=== PATIENT | female | born 1955 | race African-American/Black ===

== ENCOUNTER 2024-09-02 10:21 | Inpatient (IN) ==
[2024-09-02] MEDS: 0.9 % SODIUM CHLORIDE 1000 ML 1,000 ML IV STA (10:41)
--- NOTE | 2024-09-02 10:42 | Emergency Department Note ---
HPI - General Adult General Chief complaint: Recheck/Abnormal Lab/Rx Stated complaint: sent for fluids Time Seen by Provider: 09/02/24 10:37 Source: patient Mode of arrival: walk-in Limitations: no limitations History of Present Illness HPI narrative: This is a 68 year old female patient that presents to the ER with c/o being sent here by her PCP for abnormal labs and needs IVF. patient denies any chest pain, SOB, back pain, abdominal pain, numbness, tingling, weakness or N/V/D. Exacerbating factors: Reports none Associated symptoms: Reports denies other symptoms Treatments prior to arrival: Reports none Related Data Allergies Allergy/AdvReac Type Severity Reaction Status Date / Time No Known Drug Allergies Allergy Verified 09/02/24 10:38 Review of Systems Status of ROS 10 or more systems reviewed and unremark able except as noted in history and below Constitutional Denies: fever, chills, change in weight, fatigue, malaise, night sweats or change in sleep pattern Eyes Denies: change in vision, blurry vision, blind spots, light sensitivity or eye discomfort Ears, nose, mouth, and throat Denies: throat pain, neck pain, throat swelling, difficulty swallowing, hoarseness, mouth pain or swelling of lips/tongue Cardiovascular Denies: chest pain, palpitations, edema, swelling of feet/ankles, lightheadedness or shortness of breath with exertion Respiratory Denies: shortness of breath, cough, wheezing, stridor, pain on inspiration or change in phlegm color Gastrointestinal Denies: abdominal pain, nausea, vomiting, coffee grounds in vomit, heartburn, diarrhea or constipation Genitourinary Denies: painful urination, urinary frequency, urinary urgency, urinary incontinence, blood in urine or difficulty voiding Musculoskeletal Denies: back pain, neck pain, extremity pain, extremity swelling, joint pain or limited range of motion Integumentary/Breast Denies: rash, itching, redness, skin pain, skin tenderness, skin swelling or sores Neurological Denies: headache, numbness in extremities, weakness in extremities, lack of coordination or dizziness Psychiatric Denies: anxiety, mood swings, panic attacks, change in sleep pattern, hopelessness or loss of interest Endocrine Denies: excessive urination, excessive thirst, fatigue or cold intolerance Hematologic/Lymphatic Denies: easy bruising, easy bleeding or enlarged lymph nodes Allergic/Immunologic Denies: hives, throat swelling, tongue swelling, facial swelling or wheezing [facility] Medical History (Updated 09/02/24 @ 10:42 by Isis Mayfield RN) Chronic kidney disease Hypertension Diabetes Social History Smoking status: never smoker Exam Constitutional: normal general appearance and no apparent distress Vital Signs - 24 hr 09/02/24 10:33 Temperature 98.5 F Pulse Rate 79 Respiratory Rate 20 Blood Pressure 209/68 Pulse Oximetry 99 Oxygen Delivery Me thod Room Air HENMT: normocephalic, head/scalp atraumatic, hearing grossly normal bilaterally, external ears normal, EACs normal, nasal mucous membranes normal, external nose normal, oral mucous membranes normal and oropharynx normal Eyes: PERRL, EOMs intact bilaterally, conjunctivae normal and no scleral icterus Neck/C-Spine: visual inspection normal and trachea midline Lymph: no lymphadenopathy noted Chest: inspection of chest normal Respiratory: breath sounds equal bilaterally, normal respiratory effort, clear to auscultation bilaterally, no wheezes, no rales, no retractions, no use of accessory muscles and chest percussion normal Cardiovascular: normal heart rate noted, regular rhythm noted, no gallop, no rub, no murmur, no JVD, no clicks, peripheral pulses 2+ throughout, no bruits noted and no additional abnormal heart sounds Gastrointestinal: abdomen normal to inspection, abdomen soft to palpation, nontender to palpation, nontender to percussion, nondistended, normoactive bowel sounds, no hepatosplenomegaly, no masses, no pulsatile mass, no ascites and no hernia Genitourinary: no CVA tenderness Back/Pelvis: spine normal to inspection Extremities: normal to inspection, normal to palpation, no tenderness, full ROM, no joint enlargement and no deformity Neurology: no movement abnormality noted, no focal motor deficit noted, no sensory deficits noted, gait normal, speech normal, coordination normal, no pronator drift noted, no fasciculations noted and GCS normal Psychiatry: mental status grossly normal, oriented x3, thought process normal, cooperative and affect normal Skin: skin color normal Course Course Hospital Course: 1128: spoke to Dr Mayo and reviewed labs with her and she accepted patient to the medical floor for further evaluation and treatment. VSS, no s/s of acute distress noted Vital Signs Vital signs: Vital Signs Temperature 98.5 F 09/02/24 10:33 Pulse Rate 79 09/02/24 10:33 Respiratory Rate 20 09/02/24 10:33 Blood Pressure 209/68 09/02/24 10:33 Pulse Oximetry 99 09/02/24 10:33 Oxygen Delivery Method Room Air 09/02/24 10:33 Temperature 98.5 F 09/02/24 10:33 Pulse Rate 79 09/02/24 10:33 Respiratory Rate 20 09/02/24 10:33 Blood Pressure 209/68 09/02/24 10:33 Pulse Oximetry 99 09/02/24 10:33 Oxygen Delivery Method Room Air 09/02/24 10:33 Medical Decision Making Differential Diagnosis Differential Diagnosis: viral illness Medical Records Medical records reviewed: Yes I reviewed the patient's medical records Lab Data Lab results reviewed: Yes I reviewed the patient's lab results Labs: Lab Results 09/02/24 Range/Units 10:45 WBC 3.6 L (4.3-9.3) K/uL RBC 3.8 L (4.00-5.50) M/uL Hgb 10.7 L (12.5-15.8) gm/dL Hct 32.4 L (35.9-46.7) % MCV 85.5 (81.0-93.7) fl MCH 28.1 (27.6-32.2) pg MCHC 32.8 L (33.1-35.3) g/dl RDW 13.8 (11.4-14.2) % Plt Count 180 (152-353) K/uL MPV 7.8 (6.9-10.8) fl Gran % 67.8 (47.8-71.3) % Lymph % (Auto) 21.2 (20.0-43.0) % [place] % (Auto) 7.3 (3.6-9.8) % Eos % (Auto) 2.8 (0.4-2.8) % Baso % (Auto) 0.9 H (0.1-0.85) Lymph # (Auto) 0.8 L (1.1-3.1) [place] # (Auto) 0.3 L (1.1-3.1) Eos # (Auto) 0.1 (0.0-0.2) Baso # (Auto) 0.0 (0.0-0.1) Absolute Gran (auto) 2.4 (2.3-6.0) Sodium 135 L (136-145) mmol/L Potassium 4.4 (3.6-5.2) mmol/L Chloride 102.0 (98-107) mmol/L Carbon Dioxide 25 (21-32) mmol/L Anion Gap 8.0 (4-14) mEq/L BUN 61 H (7-18) mg/dL Creatinine 4.3 H* (0.6-1.3) mg/dL Estimated GFR 10.8 (>59.9) Glucose 168 H (70-110) mg/dL Calcium 8.9 (8.5-10.1) mg/dL Total Bilirubin 0.18 (0.0-1.0) mg/dL AST 83 H (15-37) U/L ALT 81 H (30-65) U/L Alkaline Phosphatase 107 (50-136) U/L Total Protein 6.9 (6.4-8.2) g/dL Albumin 3.3 L (3.4-5.0) g/dL Discharge Plan Discharge Patient Disposition: Admitted As Observation Condition: Stable Clinical Impression: Dehydration, Acute on chronic renal failure Time of Disposition: 11:30
[2024-09-02 10:53] LABS: Basophils%(Percent) Auto 0.9 (0.1-0.85); Eosinophils#(Absolute)Auto 0.1 (0.0-0.2); Eosinophils%(Percent) Auto 2.8 % (0.4-2.8); Granulocytes % - Auto 67.8 % (47.8-71.3); Granulocytes#(Absolute)- Auto 2.4 (2.3-6.0); Hematocrit 32.4 % (35.9-46.7); Mean Corpuscular Volume 85.5 fl (81.0-93.7); Monocytes #(Absolute)- Auto 0.3 (1.1-3.1); Monocytes %(Percent)- Auto 7.3 % (3.6-9.8); Platelet Count 180 K/uL (152-353); White Blood Count 3.6 K/uL (4.3-9.3)
[2024-09-02 11:09] LABS: Potassium 4.4 mmol/L (3.6-5.2)
[2024-09-02 14:32] LABS: Urine Appearance HAZY (CLEAR); Urine Color YELLOW (STRAW/YELL.)
[2024-09-02 14:34] LABS: PH BODY FLUID EXCP BLOOD 7.5 (5 - 9); Urine Blood TRACE (NEG - TRACE); Urine Urobilinogen Normal (NORMAL)
[2024-09-02 14:52] LABS: Ur. Squamous Epithelial Cell Few (Negative)
[2024-09-02] MEDS ORDERED: ACETAMINOPHEN 500 MG TABLET PO PRN (15:00)
[2024-09-02] MEDS ORDERED: MAGNESIUM, ALUMINUM HYDROXIDE 30 ML ORAL.SUSP PO PRN (15:00)
[2024-09-02] MEDS: 0.9 % SODIUM CHLORIDE 1000 ML 1,000 ML IV SCH (15:18)
--- NOTE | 2024-09-02 21:36 | History & Physical Report ---
H&P: HPI History of Present Illness Chief complaint: dehydration, acute on chronic renal failure Narrative: A 68-year-old came into the ER as she was sent by her primary care physician office by Pina Griffin for abnormal labs and worsening of her renal function and possible dehydration patient denies any chest pain, shortness of breath, back pain, abdominal pain, numbness, tingling, weakness or nausea vomiting or diarrhea. Patient [place] missing any drugs other blood pressure is very high at this time as she cannot relate any of her medications just states that she took them and she can even tell me how many that number would be that she was supposed to take this morning. Patient has well-documented history of medical noncompliance despite extensive education. Review of Systems Status of ROS 10 or more systems reviewed and unremark able except as noted in history and below Constitutional Reports: fatigue and malaise; Denies: fever, chills, change in weight, night sweats or change in sleep pattern Eyes Denies: change in vision, blurry vision, blind spots, light sensitivity or eye discomfort Ears, nose, mouth, and throat Denies: throat pain, neck pain, throat swelling, difficulty swallowing, hoarseness, mouth pain or swelling of lips/tongue Cardiovascular Denies: chest pain, palpitations, edema, swelling of feet/ankles, lightheadedness or shortness of breath with exertion Respiratory Denies: shortness of breath, cough, wheezing, stridor, pain on inspiration or change in phlegm color Gastrointestinal Denies: abdominal pain, nausea, vomiting, coffee grounds in vomit, heartburn, diarrhea, constipation or difficulty swallowing Genitourinary Denies: painful urination, urinary frequency, urinary urgency, urinary incontinence, blood in urine or difficulty voiding Musculoskeletal Denies: back pain, neck pain, extremity pain, extremity swelling, joint pain or limited range of motion Integumentary/Breast Denies: rash, itching, redness, skin pain, skin te nderness, skin swelling or sores Neurological Reports: headache; Denies: numbness in extremities, weakness in extremities, lack of coordination or dizziness Psychiatric Reports: irritability and difficulty concentrating; Denies: anxiety, mood swings, panic attacks, change in sleep pattern, hopelessness, loss of interest, paranoia or memory loss Endocrine Denies: excessive urination, excessive thirst, fatigue or cold intolerance Hematologic/Lymphatic Denies: easy bruising, easy bleeding or enlarged lymph nodes Allergic/Immunologic Denies: hives, throat swelling, tongue swelling, facial swelling or wheezing PFSH [facility] Medical History (Updated 09/03/24 @ 11:29 by China Mayo DO) 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, malignant renovascular Chronic kidney disease Hypertension Diabetes Social History Smoking status: never smoker Problems where you live: no known problems Highest level of school completed/degree received: GED or equivalent Meds Home Medications and Allergies Home Medications Medication Instructions Recorded Confirmed Type alendronate 70 mg tablet 70 mg PO QWEEK 09/02/2409/21 History amlodipine 10 mg tablet 10 mg PO DAILY 09/02/2409/21 History carvedilol 12.5 mg tablet 12.5 mg PO BID 09/02/2409/21 History clopidogrel 75 mg tablet 75 mg PO DAILY 09/02/2409/21 History dapagliflozin propanediol 10 mg 10 mg PO DAILY 5 09/02/24 History tablet (Farxiga) ergocalciferol (vitamin D2) 1,250 1,250 mcg PO QWEEK 0 09/02/24 09/02/24 History mcg (50,000 unit) capsule (Vitamin D2) glyburide micronized 6 mg tablet 3 mg PO BID 09/02/24 09/02/24 History hydralazine 50 mg tablet 50 mg PO BID 09/02/24 History pravastatin 40 mg tablet 40 mg PO BEDTIME 09/02/24 History sodium bicarbonate 650 mg tablet 650 mg PO 5XD 5 09/02/24 History tirzepatide 5 mg/0.5 mL 5 mg subcut QWEEK 09/02/24 0 09/02/24 History subcutaneous pen injector (Mounjaro) valsartan 320 mg tablet 320 mg PO DAILY 09/02/2409/21 History Allergies Allergy/AdvReac Type Severity Reaction Status Date / Time No Known Drug Allergies Allergy Verified 09/02/24 10:38 Exam Constitutional: abnormal general appearance (chronically ill) and (frail appearing), no apparent distress, average body habitus, limitations noted (behavioral limitations) and (physical limitations) and alert Vital Signs - 24 hr 09/02/24 10:33 09/02/24 12:44 09/02/24 14:44 Temperature 98.5 F Pulse Rate 79 71 Pulse Rate [Left] Respiratory Rate 20 17 19 Blood Pressure 209/68 159/79 Blood Pressure [Le ft Arm] Pulse Oximetry 99 98 100 Oxygen Delivery Me thod Room Air Room Air 09/02/24 14:45 09/02/24 16:00 09/02/24 19:48 Temperature 98.5 F 97.7 F 98.5 F Pulse Rate 71 Pulse Rate [Left] 75 74 Respiratory Rate 17 16 17 Blood Pressure 159/79 Blood Pressure [Le ft Arm] 180/91 183/84 Pulse Oximetry 98 98 99 Oxygen Delivery Me thod Room Air Room Air HENMT: normocephalic, head/scalp atraumatic, hearing grossly abnormal, external ears normal, EACs normal, TMs normal bilaterally, nasal mucous membranes normal, external nose normal, oral mucous membranes normal, oropharynx normal, dentition abnormal and gingiva abnormal Eyes: PERRL, EOMs intact bilaterally, conjunctivae normal, no scleral icterus, papilledema noted and periorbital findings normal Neck/C-Spine: abnormal to visual inspection, trachea midline, cervical spine nontender, abnormal cervical ROM noted, supple, no meningeal signs, thyroid normal and no carotid bruits Lymph: no lymphadenopathy noted and no lymphedema noted Chest: inspection of chest normal and palpation of chest normal Respiratory: breath sounds equal bilaterally, normal respiratory effort, clear to auscultation bilaterally, no wheezes, no rales, no retractions, no use of accessory muscles and chest percussion normal Cardiovascular: normal heart rate noted, regular rhythm noted, no gallop, no rub, murmur noted, no JVD, no clicks, peripheral pulses 2+ throughout, no bruits noted and no additional abnormal heart sounds Gastrointestinal: abdomen normal to inspection, abdomen soft to palpation, nontender to palpation, nontender to percussion, nondistended, normoactive bowel sounds, hepatosplenomegaly noted, no masses, no pulsatile mass, no ascites and no hernia Genitourinary: no CVA tenderness and bladder normal to palpation Back/Pelvis: spine abnormal to inspection, no thoracic spine tenderness, no lumbar spine tenderness, thoracic spine ROM normal and lumbar spine ROM normal Extremities: abnormal to inspection, normal to palpation, no tenderness, abnormal ROM noted, joint enlargement noted and no deformity Neurology: director metabolism II-XII intact, no movement abnormality noted, no focal motor deficit noted, sensory deficit noted, deep tendon reflexes 2+ bilaterally, gait abnormality noted, speech normal, coordination normal, no pronator drift noted, no fasciculations noted and GCS normal Psychiatry: Mental Status Exam documented within this Exam's Psych section mental status grossly normal, oriented x3, thought process abnormality noted, cooperative, affect abnormality noted (depressed), psychomotor activity normal and memory normal Feel stressed/tense/nervous/anxious/difficulty sleeping: not at all Skin: skin color normal, no rash, no lesions, no ecchymosis noted, no wounds, no lacerations and skin turgor abnormal Reports (tenting) Assessment and Plan Assessment and Plan (1) Acute dehydration: Code(s): E86.0 - Dehydration (2) Hypertension, malignant renovascular: Code(s): I15.0 - Renovascular hypertension (3) UTI (urinary tract infection): Qualifiers: Urinary tract infection type: acute cystitis Hematuria presence: with hematuria Qualified Code(s): N30.01 - Acute cystitis with hematuria Code(s): N39.0 - Urinary tract infection, site not specified (4) Acute on chronic renal failure: Qualifiers: Acute renal failure type: unspecified Chronic kidney disease stage: stage 5 (GFR < 15), not on chronic dialysis Qualified Code(s): N17.9 - Acute kidney failure, unspecified; N18.5 - Chronic kidney disease, stage 5 Code(s): N17.9 - Acute kidney failure, unspecified; N18.9 - Chronic kidney disease, unspecified (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: Code(s): E11.610 - Type 2 diabetes mellitus with diabetic neuropathic arthropathy (6) Hyponatremia: Code(s): E87.1 - Hypo-osmolality and hyponatremia (7) Hypoalbuminemia: Code(s): E88.09 - Other disorders of plasma-protein metabolism, not elsewhere classified (8) Anemia: Qualifiers: Anemia type: other cause Other causes of anemia: other cause, not classified Qualified Code(s): D64.89 - Other specified anemias Code(s): D64.9 - Anemia, unspecified Plan 1 L normal saline in the ER being run at 100 mL/h overnight Rocephin 1 g IV every 12 hours Strict I's and O's Daily weights and monitor for fluid overload secondary to renal dysfunction and long-term hyperlipidemia with vascular issues Cardiac monitoring Results Labs Labs: CBC 09/02/24 Range/Units 10:45 WBC 3.6 L (4.3-9.3) K/uL RBC 3.8 L (4.00-5.50) M/uL Hgb 10.7 L (12.5-15.8) gm/dL Hct 32.4 L (35.9-46.7) % Plt Count 180 (152-353) K/uL Gran % 67.8 (47.8-71.3) % Lymph % (Auto) 21.2 (20.0-43.0) % [place] % (Auto) 7.3 (3.6-9.8) % Eos % (Auto) 2.8 (0.4-2.8) % Baso % (Auto) 0.9 H (0.1-0.85) Lymph # (Auto) 0.8 L (1.1-3.1) [place] # (Auto) 0.3 L (1.1-3.1) Eos # (Auto) 0.1 (0.0-0.2) Baso # (Auto) 0.0 (0.0-0.1) Absolute Gran (auto) 2.4 (2.3-6.0) CMP 09/02/24 10:45 Sodium 135 L Potassium 4.4 Chloride 102.0 Carbon Dioxide 25 BUN 61 H Creatinine 4.3 H* Glucose 168 H Calcium 8.9 Liver Function 09/02/24 Range/Units 10:45 Total Bilirubin 0.18 (0.0-1.0) mg/dL AST 83 H (15-37) U/L ALT 81 H (30-65) U/L Alkaline Phosphatase 107 (50-136) U/L Albumin 3.3 L (3.4-5.0) g/dL Urine 09/02/24 14:28 Urine Color Yellow Urine Appearance Hazy Ur Specific [place] 1.010 Urine Protein 2+ Urine Glucose (UA) 2+ Pulse Oximetry Attestation: I have reviewed the pertinent pulse oximetry results. ECG Attestation: I have reviewed the pertinent ECG results.
[2024-09-02] MEDS: SODIUM BICARBONATE 650 MG TABLET PO SCH (22:07)
[2024-09-02] MEDS: AMLODIPINE BESYLATE 5 MG TABLET PO SCH (22:07)
[2024-09-03 05:48] LABS: Basophils%(Percent) Auto 0.7 (0.1-0.85); Eosinophils#(Absolute)Auto 0.2 (0.0-0.2); Eosinophils%(Percent) Auto 4.1 % (0.4-2.8); Granulocytes % - Auto 63.1 % (47.8-71.3); Granulocytes#(Absolute)- Auto 2.4 (2.3-6.0); Hematocrit 31.4 % (35.9-46.7); Mean Corpuscular Volume 85.2 fl (81.0-93.7); Monocytes #(Absolute)- Auto 0.4 (1.1-3.1); Monocytes %(Percent)- Auto 9.5 % (3.6-9.8); Platelet Count 175 K/uL (152-353); White Blood Count 3.7 K/uL (4.3-9.3)
[2024-09-03 05:59] LABS: Potassium 3.9 mmol/L (3.6-5.2)
[2024-09-03] MEDS ORDERED: AMLODIPINE BESYLATE 5 MG TABLET PO SCH (09:00)
[2024-09-03] MEDS ORDERED: EMPAGLIFLOZIN 10 MG TABLET PO SCH (09:00)
[2024-09-03] MEDS ORDERED: FARXIGA PO SCH (09:00)
[2024-09-03] MEDS ORDERED: carvediloL 25 MG TABLET PO SCH (09:00)
[2024-09-03] MEDS: CLOPIDOGREL BISULFATE 75 MG TABLET PO SCH (09:17)
[2024-09-03] MEDS: carvediloL 6.25 MG TABLET PO SCH (09:17)
[2024-09-03] MEDS: HYDRALAZINE HCL 25 MG TABLET PO SCH (09:18)
[2024-09-03] MEDS: VALSARTAN 320 MG PO SCH (09:19)
[2024-09-03] MEDS: GLYBURIDE MICRONIZED 6 MG PO SCH (09:20)
[2024-09-03] MEDS: FARXIGA 10 MG PO SCH (09:21)
[2024-09-03] MEDS: ERGOCALCIFEROL (VITAMIN D2) 1,250 MCG CAPSULE PO SCH (10:12)
--- NOTE | 2024-09-03 11:34 | Progress Note ---
Progress Note: Subjective Subjective Interval history: Patient states she feels much better today is urine urinating well has no shortness of breath denies any chest pain. Exam Constitutional: Vital Signs - 24 hr 09/02/24 12:44 09/02/24 14:44 09/02/24 14:45 Temperature 98.5 F Pulse Rate 71 71 Pulse Rate [Left] Respiratory Rate 17 19 17 Blood Pressure 159/79 159/79 Blood Pressure [Le ft Arm] Pulse Oximetry 98 100 98 Oxygen Delivery Me thod Room Air 09/02/24 16:00 09/02/24 19:48 09/02/24 23:26 Temperature 97.7 F 98.5 F 98.8 F Pulse Rate Pulse Rate [Left] 75 74 83 Respiratory Rate 16 17 18 Blood Pressure Blood Pressure [Le ft Arm] 180/91 183/84 176/83 Pulse Oximetry 98 99 98 Oxygen Delivery Me thod Room Air Room Air Room Air 09/03/24 03:32 09/03/24 08:00 09/03/24 09:17 Temperature 98.4 F 98.6 F Pulse Rate 76 Pulse Rate [Left] 82 76 Respiratory Rate 16 16 Blood Pressure 128/74 Blood Pressure [Le ft Arm] 150/72 128/74 Pulse Oximetry 98 99 Oxygen Delivery Me thod Room Air Room Air 09/03/24 09:18 Temperature Pulse Rate Pulse Rate [Left] Respiratory Rate Blood Pressure 128/74 Blood Pressure [Le ft Arm] Pulse Oximetry Oxygen Delivery Me thod Progress Note: Objective Labs Labs: CBC 09/03/24 Range/Units 05:45 WBC 3.7 L (4.3-9.3) K/uL RBC 3.7 L (4.00-5.50) M/uL Hgb 10.4 L (12.5-15.8) gm/dL Hct 31.4 L (35.9-46.7) % Plt Count 175 (152-353) K/uL Gran % 63.1 (47.8-71.3) % Lymph % (Auto) 22.6 (20.0-43.0) % [place] % (Auto) 9.5 (3.6-9.8) % Eos % (Auto) 4.1 H (0.4-2.8) % Baso % (Auto) 0.7 (0.1-0.85) Lymph # (Auto) 0.8 L (1.1-3.1) [place] # (Auto) 0.4 L (1.1-3.1) Eos # (Auto) 0.2 (0.0-0.2) Baso # (Auto) 0.0 (0.0-0.1) Absolute Gran (auto) 2.4 (2.3-6.0) CMP 09/02/24 09/03/24 10:45 05:45 Sodium 135 L 140 Potassium 4.4 3.9 Chloride 102.0 108.0 H Carbon Dioxide 25 25 BUN 61 H 55 H Creatinine 4.3 H* 3.9 H* Glucose 168 H 111 H Calcium 8.9 9.0 Liver Function 09/02/24 Range/Units 10:45 Total Bilirubin 0.18 (0.0-1.0) mg/dL AST 83 H (15-37) U/L ALT 81 H (30-65) U/L Alkaline Phosphatase 107 (50-136) U/L Albumin 3.3 L (3.4-5.0) g/dL Urine 09/02/24 14:28 Urine Color Yellow Urine Appearance Hazy Ur Specific [place] 1.010 Urine Protein 2+ Urine Glucose (UA) 2+ Progress Note: A&P Assessment and Plan (1) Acute dehydration: (2) Hypertension, malignant renovascular: (3) UTI (urinary tract infection): Qualifiers: Urinary tract infection type: acute cystitis Hematuria presence: with hematuria Qualified Code(s): N30.01 - Acute cystitis with hematuria (4) Acute on chronic renal failure: Qualifiers: Acute renal failure type: unspecified Chronic kidney disease stage: stage 5 (GFR < 15), not on chronic dialysis Qualified Code(s): N17.9 - Acute kidney failure, unspecified; N18.5 - Chronic kidney disease, stage 5 (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: (6) Hyponatremia: (7) Hypoalbuminemia: (8) Anemia: Qualifiers: Anemia type: other cause Other causes of anemia: other cause, not classified Qualified Code(s): D64.89 - Other specified anemias (9) Patient's noncompliance with other medical treatment and regimen for other reason: (10) Vascular dementia: Qualifiers: Dementia severity: moderate Dementia behavioral or psychological symptom: with other behavioral disturbance Qualified Code(s): F01.B18 - Vascular dementia, moderate, with other behavioral disturbance (11) CAD (coronary artery disease): Qualifiers: Coronary Disease-Associated Artery/Lesion type: unspecified vessel or lesion type [place] vs. transplanted heart: unspecified whether [place] or transplanted heart Associated angina: with stable angina Qualified Code(s): I25.118 - Atherosclerotic heart disease of [place] coronary artery with other forms of angina pectoris Plan continue to run at 100 mL/h overnight Rocephin 1 g IV every 12 hours Strict I's and O's Daily weights and monitor for fluid overload secondary to renal dysfunction and long-term hyperlipidemia with vascular issues Cardiac monitoring daily Power Content Fall Risk Details Gunderson Fall Scale Risk Level: Low Fall Risk Current Medications: Current Medications Acetaminophen (Acetaminophen 500 Mg Tablet) 500 mg PO Q6H PRN PRN Reason: MILD PAIN SCALE 1-4 Amlodipine Besylate (Amlodipine Besylate 5 Mg Tablet) 10 mg PO BEDTIME [facility] Last Admin: 09/02/24 22:07 Dose: 10 mg Atorvastatin Calcium (Atorvastatin Calcium 10 Mg Tablet) 10 mg PO BEDTIME [facility] Carvedilol (Carvedilol 6.25 Mg Tablet) 12.5 mg PO BID [facility] Last Admin: 09/03/24 09:17 Dose: 12.5 mg Clopidogrel Bisulfate (Clopidogrel Bisulfate 75 Mg Tablet) 75 mg PO DAILY [facility] Last Admin: 09/03/24 09:17 Dose: 75 mg Docusate Sodium (Docusate Sodium 100 Mg Capsule) 100 mg PO DAILY PRN PRN Reason: Constipation Ergocalciferol (Ergocalciferol (Vitamin D2) 1,250 Mcg Capsule) 1,250 mcg PO Q7D [facility] Last Admin: 09/03/24 10:12 Dose: Not Given Hydralazine HCl (Hydralazine Hcl 25 Mg Tablet) 50 mg PO BID [facility] Last Admin: 09/03/24 09:18 Dose: 50 mg Sodium Chloride (Sodium Chloride) 1,000 mls @ 100 mls/hr IV CONT [facility] Last Admin: 09/03/24 01:34 Dose: 100 mls/hr Magnesium Hydroxide (Magnesium, Aluminum Hydroxide 30 Ml Oral.Susp) 30 ml PO DAILY PRN PRN Reason: gerd Non-Formulary Medication (Glyburide Micronized) 6 mg PO DAILY [facility] Last Admin: 09/03/24 09:20 Dose: 6 mg Non-Formulary Medication (Valsartan) 320 mg PO DAILY [facility] Last Admin: 09/03/24 09:19 Dose: 320 mg Non-Formulary Medication (Farxiga) 10 mg PO DAILY [facility] Last Admin: 09/03/24 09:21 Dose: 10 mg Sodium Bicarbonate (Sodium Bicarbonate 650 Mg Tablet) 1,300 mg PO TID [facility] Last Admin: 09/03/24 09:18 Dose: 1,300 mg Time Spent With Patient Time: Total time spent is greater than 50% in coordination of care (as documented) at patient's floor/unit and/or counseling patient:
[2024-09-03] MEDS: CEFTRIAXONE SODIUM 1 GM in 0.9 % SODIUM CHLORIDE MB+ 50 ML IV SCH (12:09)
[2024-09-03] MEDS: ATORVASTATIN CALCIUM 10 MG TABLET PO SCH (20:12)
[2024-09-03] MEDS ORDERED: PRAVASTATIN 40 MG PO SCH (21:00)
[2024-09-04 05:23] LABS: Basophils%(Percent) Auto 0.4 (0.1-0.85); Eosinophils#(Absolute)Auto 0.2 (0.0-0.2); Eosinophils%(Percent) Auto 3.8 % (0.4-2.8); Granulocytes % - Auto 63.8 % (47.8-71.3); Granulocytes#(Absolute)- Auto 2.6 (2.3-6.0); Hematocrit 29.9 % (35.9-46.7); Mean Corpuscular Volume 84.5 fl (81.0-93.7); Monocytes #(Absolute)- Auto 0.3 (1.1-3.1); Monocytes %(Percent)- Auto 7.8 % (3.6-9.8); Platelet Count 174 K/uL (152-353); White Blood Count 4.1 K/uL (4.3-9.3)
[2024-09-04 05:42] LABS: Potassium 3.9 mmol/L (3.6-5.2)
--- NOTE | 2024-09-04 14:36 | Progress Note ---
Progress Note: Subjective Subjective Interval history: Patient states she feels weak today and family in and out and she is urinating alot well has no shortness of breath denies any chest pain. Exam Constitutional: abnormal general appearance (chronically ill) and (frail appearing), no apparent distress, average body habitus, limitations noted (behavioral limitations) and (physical limitations) and alert Vital Signs - 24 hr 09/03/24 16:00 09/03/24 20:00 09/03/24 23:46 Temperature 98.3 F 98.3 F 98.6 F Pulse Rate Pulse Rate [Left] 78 75 83 Respiratory Rate 19 18 16 Blood Pressure Blood Pressure [Le ft Arm] 162/78 170/80 126/65 Pulse Oximetry 98 99 99 Oxygen Delivery Me thod Room Air Room Air Room Air 09/04/24 03:46 09/04/24 08:00 09/04/24 08:31 Temperature 98.4 F 97.7 F Pulse Rate 68 Pulse Rate [Left] 77 68 Respiratory Rate 19 18 Blood Pressure 162/82 Blood Pressure [Le ft Arm] 134/65 162/82 Pulse Oximetry 98 [facility] 09/04/24 08:32 09/04/24 11:48 Temperature 98.3 F Pulse Rate Pulse Rate [Left] 72 Respiratory Rate 17 Blood Pressure 162/82 Blood Pressure [Le ft Arm] 147/77 Pulse Oximetry 99 [facility] HENMT: normocephalic, head/scalp atraumatic, hearing grossly abnormal, external ears normal, EACs normal, TMs normal bilaterally, nasal mucous membranes normal, external nose normal, oral mucous membranes normal, oropharynx normal, dentition abnormal and gingiva abnormal Eyes: PERRL, EOMs intact bilaterally, conjunctivae normal, no scleral icterus, papilledema noted and periorbital findings normal Neck/C-Spine: abnormal to visual inspection, trachea midline, cervical spine nontender, abnormal cervical ROM noted, supple, no meningeal signs, thyroid normal and no carotid bruits Lymph: no lymphadenopathy noted and no lymphedema noted Chest: inspection of chest normal and palpation of chest normal Respiratory: breath sounds equal bilaterally, normal respiratory effort, clear to auscultation bilaterally, no wheezes, no rales, no retractions, no use of accessory muscles and chest percussion normal Cardiovascular: normal heart rate noted, regular rhythm noted, no gallop, no rub, murmur noted, no JVD, no clicks, peripheral pulses 2+ throughout, no bruits noted and no additional abnormal heart sounds Gastrointestinal: abdomen normal to inspection, abdomen soft to palpation, nontender to palpation, nontender to percussion, nondistended, normoactive bowel sounds, hepatosplenomegaly noted, no masses, no pulsatile mass, no ascites and no hernia Genitourinary: no CVA tenderness and bladder normal to palpation Back/Pelvis: spine abnormal to inspection, no thoracic spine tenderness, no lumbar spine tenderness, thoracic spine ROM normal and lumbar spine ROM abnormal Extremities: abnormal to inspection, normal to palpation, no tenderness, abnormal ROM noted, joint enlargement noted and no deformity Neurology: contact lens curve grinder II-XII intact, no movement abnormality noted, no focal motor deficit noted, sensory deficit noted, deep tendon reflexes 2+ bilaterally, gait abnormality noted, speech normal, coordination normal, no pronator drift noted, no fasciculations noted and GCS normal Psychiatry: Mental Status Exam documented within this Exam's Psych section mental status grossly normal, oriented x3, thought process abnormality noted, cooperative, affect abnormality noted (depressed), psychomotor activity normal and memory normal Feel stressed/tense/nervous/anxious/difficulty sleeping: not at all Skin: skin color normal, no rash, no lesions, no ecchymosis noted, no wounds, no lacerations and skin turgor normal Progress Note: Objective Labs Labs: CBC 09/04/24 Range/Units 05:20 WBC 4.1 L (4.3-9.3) K/uL RBC 3.5 L (4.00-5.50) M/uL Hgb 10.0 L (12.5-15.8) gm/dL Hct 29.9 L (35.9-46.7) % Plt Count 174 (152-353) K/uL Gran % 63.8 (47.8-71.3) % Lymph % (Auto) 24.2 (20.0-43.0) % [place] % (Auto) 7.8 (3.6-9.8) % Eos % (Auto) 3.8 H (0.4-2.8) % Baso % (Auto) 0.4 (0.1-0.85) Lymph # (Auto) 1.0 L (1.1-3.1) [place] # (Auto) 0.3 L (1.1-3.1) Eos # (Auto) 0.2 (0.0-0.2) Baso # (Auto) 0.0 (0.0-0.1) Absolute Gran (auto) 2.6 (2.3-6.0) CMP 09/04/24 05:20 Sodium 142 Potassium 3.9 Chloride 110.0 H Carbon Dioxide 25 BUN 50 H Creatinine 3.5 H Glucose 74 Calcium 8.4 L Liver Function 09/04/24 Range/Units 05:20 Total Bilirubin 0.16 (0.0-1.0) mg/dL AST 31 (15-37) U/L ALT 45 (30-65) U/L Alkaline Phosphatase 79 (50-136) U/L Albumin 2.8 L (3.4-5.0) g/dL Urine 09/02/24 14:28 Urine Color Yellow Urine Appearance Hazy Ur Specific [place] 1.010 Urine Protein 2+ Urine Glucose (UA) 2+ Progress Note: A&P Assessment and Plan (1) Acute dehydration: (2) Hypertension, malignant renovascular: (3) UTI (urinary tract infection): Qualifiers: Urinary tract infection type: acute cystitis Hematuria presence: with hematuria Qualified Code(s): N30.01 - Acute cystitis with hematuria (4) Acute on chronic renal failure: Qualifiers: Acute renal failure type: unspecified Chronic kidney disease stage: stage 5 (GFR < 15), not on chronic dialysis Qualified Code(s): N17.9 - Acute kidney failure, unspecified; N18.5 - Chronic kidney disease, stage 5 (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: (6) Hyponatremia: (7) Hypoalbuminemia: (8) Anemia: Qualifiers: Anemia type: other cause Other causes of anemia: other cause, not classified Qualified Code(s): D64.89 - Other specified anemias (9) Patient's noncompliance with other medical treatment and regimen for other reason: (10) Vascular dementia: Qualifiers: Dementia severity: moderate Dementia behavioral or psychological symptom: with other behavioral disturbance Qualified Code(s): F01.B18 - Vascular dementia, moderate, with other behavioral disturbance (11) CAD (coronary artery disease): Qualifiers: Coronary Disease-Associated Artery/Lesion type: unspecified vessel or lesion type [place] vs. transplanted heart: unspecified whether [place] or transplanted heart Associated angina: with stable angina Qualified Code(s): I25.118 - Atherosclerotic heart disease of [place] coronary artery with other forms of angina pectoris Plan continue to run at 100 mL/h overnight Rocephin 1 g IV every 12 hours Strict I's and O's Daily weights and monitor for fluid overload secondary to renal dysfunction and long-term hyperlipidemia with vascular issues Cardiac monitoring daily clara Fall Risk Details Gunderson Fall Scale Risk Level: Low Fall Risk Current Medications: Current Medications Acetaminophen (Acetaminophen 500 Mg Tablet) 500 mg PO Q6H PRN PRN Reason: MILD PAIN SCALE 1-4 Amlodipine Besylate (Amlodipine Besylate 5 Mg Tablet) 10 mg PO BEDTIME [facility] Last Admin: 09/03/24 20:13 Dose: 10 mg Atorvastatin Calcium (Atorvastatin Calcium 10 Mg Tablet) 10 mg PO BEDTIME [facility] Last Admin: 09/03/24 20:12 Dose: 10 mg Carvedilol (Carvedilol 6.25 Mg Tablet) 12.5 mg PO BID [facility] Last Admin: 09/04/24 08:31 Dose: 12.5 mg Clopidogrel Bisulfate (Clopidogrel Bisulfate 75 Mg Tablet) 75 mg PO DAILY [facility] Last Admin: 09/04/24 08:32 Dose: 75 mg Docusate Sodium (Docusate Sodium 100 Mg Capsule) 100 mg PO DAILY PRN PRN Reason: Constipation Ergocalciferol (Ergocalciferol (Vitamin D2) 1,250 Mcg Capsule) 1,250 mcg PO Q7D [facility] Last Admin: 09/03/24 10:12 Dose: Not Given Hydralazine HCl (Hydralazine Hcl 25 Mg Tablet) 50 mg PO BID [facility] Last Admin: 09/04/24 08:32 Dose: 50 mg Sodium Chloride (Sodium Chloride) 1,000 mls @ 100 mls/hr IV CONT [facility] Last Admin: 09/04/24 08:40 Dose: 100 mls/hr Ceftriaxone Sodium 1 gm/ (Sodium Chloride) 50 mls @ 100 mls/hr IV Q12H [facility] Last Infusion: 09/04/24 12:53 Dose: Infused Magnesium Hydroxide (Magnesium, Aluminum Hydroxide 30 Ml Oral.Susp) 30 ml PO DAILY PRN PRN Reason: gerd Non-Formulary Medication (Glyburide Micronized) 6 mg PO DAILY [facility] Last Admin: 09/04/24 08:34 Dose: 6 mg Non-Formulary Medication (Valsartan) 320 mg PO DAILY [facility] Last Admin: 09/04/24 08:34 Dose: 320 mg Non-Formulary Medication (Farxiga) 10 mg PO DAILY [facility] Last Admin: 09/04/24 08:33 Dose: 10 mg Sodium Bicarbonate (Sodium Bicarbonate 650 Mg Tablet) 1,300 mg PO TID [facility] Last Admin: 09/04/24 08:33 Dose: 1,300 mg Time Spent With Patient Time: Total time spent is greater than 50% in coordination of care (as documented) at patient's floor/unit and/or counseling patient:
[2024-09-04] MEDS: DOCUSATE SODIUM 100 MG CAPSULE PO PRN (17:36)
[2024-09-05 05:00] LABS: Eosinophils#(Absolute)Auto 0.1 (0.0-0.2); Granulocytes % - Auto 61.6 % (47.8-71.3); Granulocytes#(Absolute)- Auto 2.2 (2.3-6.0); Hematocrit 29.3 % (35.9-46.7); Mean Corpuscular Volume 83.9 fl (81.0-93.7); Monocytes #(Absolute)- Auto 0.3 (1.1-3.1); Monocytes %(Percent)- Auto 8.2 % (3.6-9.8); Platelet Count 164 K/uL (152-353); White Blood Count 3.6 K/uL (4.3-9.3)
[2024-09-05 05:16] LABS: Potassium 3.7 mmol/L (3.6-5.2)
[2024-09-05] MEDS: SODIUM BICARBONATE 650 MG TABLET PO SCH (07:16)
[2024-09-05 08:08] VITALS: RESP 19
--- NOTE | 2024-09-05 09:29 | Discharge Summary ---
DS: Providers Provider Date of admission: 09/02/24 12:23 Primary care physician: China Mayo DO Admitting clinician: Tosha Boggs Attending physician on admission: Tosha Boggs Attending physician on discharge: Tosha Boggs Discharging clinician: Tosha Boggs Anticipated date of discharge: 09/05/24 DS: Diagnosis Discharge Diagnosis (1) Acute dehydration: (2) Hypertension, malignant renovascular: (3) UTI (urinary tract infection): Qualifiers: Hematuria presence: with hematuria Urinary tract infection type: acute cystitis Qualified Code(s): N30.01 - Acute cystitis with hematuria (4) Acute on chronic renal failure: Qualifiers: Acute renal failure type: unspecified Chronic kidney disease stage: stage 5 (GFR < 15), not on chronic dialysis Qualified Code(s): N17.9 - Acute kidney failure, unspecified; N18.5 - Chronic kidney disease, stage 5 (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: (6) Hyponatremia: (7) Hypoalbuminemia: (8) Anemia: Qualifiers: Anemia type: other cause Other causes of anemia: other cause, not classified Qualified Code(s): D64.89 - Other specified anemias (9) Patient's noncompliance with other medical treatment and regimen for other reason: (10) Vascular dementia: Qualifiers: Dementia behavioral or psychological symptom: with other behavioral disturbance Dementia severity: moderate Qualified Code(s): F01.B18 - Vascular dementia, moderate, with other behavioral disturbance (11) CAD (coronary artery disease): Qualifiers: Associated angina: with stable angina Coronary Disease-Associated Artery/Lesion type: unspecified vessel or lesion type [place] vs. transplanted heart: unspecified whether [place] or transplanted heart Qualified Code(s): I25.118 - Atherosclerotic heart disease of [place] coronary artery with other forms of angina pectoris (12) Group beta Strep positive: DS: Summary Hospital Course Hospital Course: 1128: spoke to Dr Mayo and reviewed labs with her and she accepted patient to the medical floor for further evaluation and treatment. VSS, no s/s of acute distress noted Patient tolerated fluids on MedSurg on the second admission started having improvement in her appetite denied any nausea vomiting or diarrhea only slight improvement in renal function. Patient had an improvement in, filtration rate from 10.8 on the day admission to 14.3 on day of discharge charge slightly improved with hydration BUN improved from 61-47 creatinine went from 4.3 on admission to 3.4 which is around her baseline of renal function blood sugar upon waking before breakfast was 60 on the day of discharge hyponatremia improved from 135-142 on day of discharge. Patient's albumin went from 3.3 on day of admission to 2.7 on day of discharge. Patient felt weak without any confusion no sweating morning blood sugar was 60 was able to eat and bring it up. Patient was well-educated on medical noncompliance and admits that it runs of being overmedicated and if lifestyle changes in the medicines could cause harm and can cause harm with placing hospital medications given as I think she is taking them. Urine showed positive WBCs, blood, glucose and protein and negative leuk esterase, nitrates , ketones and culture came back positive for group B beta strep on the discharge the patient was started on oral penicillin on day of discharge. hemeglobin remained stable 10.7 to Status at Discharge Functional status at discharge: independent ambulation Overall status at discharge: patient is progressing back to baseline Time Spent with Patient Time attestation: Total time spent providing and/or coordinating discharge services: 52 Time spent: greater than 30 minutes Exam Constitutional: abnormal general appearance (chronically ill) and (frail appearing), no apparent distress, average body habitus, limitations noted (physical limitations) and alert Vital Signs - 24 hr 09/04/24 11:48 09/04/24 16:00 09/04/24 20:00 Temperature 98.3 F 98.3 F 98.3 F Pulse Rate [Left] 72 72 85 Respiratory Rate 17 16 19 Blood Pressure [Le ft Arm] 147/77 176/87 182/62 Pulse Oximetry 99 99 99 Oxygen Delivery Me thod Room Air Room Air Room Air 09/04/24 23:51 09/05/24 03:44 09/05/24 08:00 Temperature 98.6 F 99.0 F 98.6 F Pulse Rate [Left] 84 75 78 Respiratory Rate 16 18 19 Blood Pressure [Le ft Arm] 142/71 145/76 153/76 Pulse Oximetry 99 99 98 Oxygen Delivery Me thod Room Air Room Air Room Air HENMT: normocephalic, head/scalp atraumatic, hearing grossly abnormal, external ears normal, EACs normal, TMs normal bilaterally, nasal mucous membranes normal, external nose normal, oral mucous membranes normal, oropharynx normal, dentition abnormal and gingiva abnormal Eyes: PERRL, EOMs intact bilaterally, conjunctivae normal, no scleral icterus, papilledema noted and periorbital findings normal Neck/C-Spine: abnormal to visual inspection, trachea midline, cervical spine nontender, abnormal cervical ROM noted, supple, no meningeal signs, thyroid normal and no carotid bruits Lymph: no lymphadenopathy noted and no lymphedema noted Chest: inspection of chest normal and palpation of chest normal Respiratory: breath sounds equal bilaterally, normal respiratory effort, clear to auscultation bilaterally, no wheezes, no rales, no retractions, no use of accessory muscles and chest percussion normal Cardiovascular: normal heart rate noted, regular rhythm noted, no gallop, no rub, murmur noted, no JVD, no clicks, peripheral pulses 2+ throughout, no bruits noted and no additional abnormal heart sounds Gastrointestinal: abdomen normal to inspection, abdomen soft to palpation, nontender to palpation, nondistended, normoactive bowel sounds, hepatosplenomegaly noted, no masses, no pulsatile mass, no ascites and no hernia Genitourinary: no CVA tenderness and bladder normal to palpation Back/Pelvis: spine abnormal to inspection, no thoracic spine tenderness, no lumbar spine tenderness, thoracic spine ROM normal and lumbar spine ROM abnormal Extremities: abnormal to inspection, normal to palpation, no tenderness, abnormal ROM noted, joint enlargement noted and no deformity Neurology: service vehicle operator II-XII intact, no movement abnormality noted, no focal motor deficit noted, sensory deficit noted, deep tendon reflexes 2+ bilaterally, gait abnormality noted, speech normal, coordination normal, no pronator drift noted, no fasciculations noted and GCS normal Psychiatry: Mental Status Exam documented within this Exam's Psych section mental status grossly normal, oriented x3, thought process normal, cooperative, affect abnormality noted (depressed), psychomotor activity normal and memory normal Feel stressed/tense/nervous/anxious/difficulty sleeping: not at all Skin: skin color normal, no rash, no lesions, no ecchymosis noted, no wounds, no lacerations and skin turgor normal DS: Data Data Completed and Pending Labs on day of discharge: Labs from last 24 hours 09/05/24 04:50 WBC 3.6 L RBC 3.5 L Hgb 9.9 L Hct 29.3 L MCV 83.9 MCH 28.3 MCHC 33.7 RDW 13.6 Plt Count 164 MPV 7.7 Gran % 61.6 Lymph % (Auto) 25.2 [place] % (Auto) 8.2 Eos % (Auto) 4.0 H Baso % (Auto) 1.0 H Lymph # (Auto) 0.9 L [place] # (Auto) 0.3 L Eos # (Auto) 0.1 Baso # (Auto) 0.0 Absolute Gran (auto) 2.2 L Sodium 142 Potassium 3.7 Chloride 110.0 H Carbon Dioxide 23 Anion Gap 9.0 BUN 47 H Creatinine 3.4 H Estimated GFR 14.3 Glucose 60 L Calcium 8.3 L Phosphorus 4.1 Magnesium 2.0 Total Bilirubin 0.19 AST 26 ALT 39 Alkaline Phosphatase 72 B-Natriuretic Peptide 260.0 H Total Protein 5.8 L Albumin 2.7 L Discharge Plan Discharge Disposition: Home, Self-Care Condition: Stable Discharge Medications: New penicillin V potassium 500 mg tablet 500 mg PO TID Qty: 15 0RF Continued glyburide micronized 6 mg tablet 3 mg PO BID amlodipine 10 mg tablet 10 mg PO DAILY hydralazine 50 mg tablet 50 mg PO BID clopidogrel 75 mg tablet 75 mg PO DAILY alendronate 70 mg tablet 70 mg PO QWEEK pravastatin 40 mg tablet 40 mg PO BEDTIME dapagliflozin propanediol [Farxiga] 10 mg tablet 10 mg PO DAILY valsartan 320 mg tablet 320 mg PO DAILY carvedilol 12.5 mg tablet 12.5 mg PO BID ergocalciferol (vitamin D2) [Vitamin D2] 1,250 mcg (50,000 unit) capsule 1,250 mcg PO QWEEK sodium bicarbonate 650 mg tablet 650 mg PO 5XD Mounjaro 5 mg/0.5 mL pen injector 5 mg SUBCUT QWEEK Discharge Orders: Discharge Order (Routine); Ordered 09/05/24 Ordered By: China Mayo Activity: increase activity as tolerated Diet: diabetic diet and low fat, low cholesterol Activity Restrictions/Additional Instructions: Patient is to follow with a protection engineer with a BP and pulse external to ensure that medications are adequate as she does not anymore medication. Follow-up PCP on Thursday or sooner if any decreased urination fever chills or any other concerns occurs Bring BP and pulse journal along with blood sugar journal to PCPs office follow- up on Thursday Increase water in her daily diet and daily weights if gaining weight needs to let her PCP or protection engineer [place] as appropriate Forms: Portal/Health Info Access Inst Follow-Ups: China Mayo DO [Primary Care Provider, Medical] - 09/12/24 2:15 pm
[2024-09-05 11:58] VITALS: BP 157/85; PULSE 76; TEMP 98.2
[2024-09-05] MEDS: PENICILLIN V POTASSIUM 500 MG TABLET PO ONE (13:19)
== END 2024-09-05 13:20 | disposition home or self-care (01) | DRG 683 ==
LOC: ED 10:21 → MS 10:21 → OBSVTOIN 12:23 → MS 14:30
PROVIDERS: ADMIT Family Medicine; ATTEND Family Medicine
DX: I25.118 Atherosclerotic heart disease of native coronary artery with other forms of angina pectoris; E11.22 Type 2 diabetes mellitus with diabetic chronic kidney disease; E88.09 Other disorders of plasma-protein metabolism, not elsewhere classified; D64.89 Other specified anemias; N17.9 Acute kidney failure, unspecified; E87.1 Hypo-osmolality and hyponatremia; F01.B18 Vascular dementia, moderate, with other behavioral disturbance; E86.0 Dehydration; I15.0 Renovascular hypertension; Z91.198 Patient's noncompliance with other medical treatment and regimen for other reason; B95.1 Streptococcus, group B, as the cause of diseases classified elsewhere; N18.5 Chronic kidney disease, stage 5; Z79.899 Other long term (current) drug therapy; E11.610 Type 2 diabetes mellitus with diabetic neuropathic arthropathy; N30.01 Acute cystitis with hematuria